=== PATIENT | male | born 1995 | race Caucasian/White ===

== ENCOUNTER 2018-06-01 12:57 | Outpatient (CLI) | payer BC ==
--- NOTE | 2018-06-01 13:30 | RAD ---
EXAM: Scoliosis series with anterior and lateral views of the thoracic and lumbosacral spine. HISTORY: Scoliosis COMPARISON: None FINDINGS: There is S shaped scoliotic curvature of the thoracolumbar spine with a maximum Siegel angle of 17 degrees. No degenerative changes are seen. No vertebral anomalies are present. IMPRESSION: Mild to moderate scoliosis as above.
== END 2018-06-01 12:58 | disposition home or self-care (01) ==
LOC: RAD 12:57
PROVIDERS: ATTEND Internal Medicine
DX: M43.8X5 Other specified deforming dorsopathies, thoracolumbar region (principal); M41.9 Scoliosis, unspecified
CPT/HCPCS: 72081